=== PATIENT | female | born 1990 | race Caucasian/White ===

== ENCOUNTER 2017-12-18 12:55 | Emergency (ER) | payer SELFPAY ==
--- NOTE | 2017-12-18 13:44 | EDPHYS ---
Physician Documentation [facility] Name: Blanca Lion Age: 27 yrs Sex: Female : 1990 Arrival Date: 12/18/2017 Time: 13:00 Bed 5 Private MD: ED Physician Jason Rosario HPI: 12/18 13:45 This 27 yrs old Female presents to ER via Ambulatory with complaints of Ear jr8 Pain. 13:45 The patient presents with pain, moderate. The complaints affect the right ear and left jr8 ear. Onset: The symptoms/episode began/occurred gradually, 2 day(s) ago. Modifying factors: The symptoms are alleviated by nothing, the symptoms are aggravated by touching. Associated signs and symptoms: Pertinent positives: rhinorrhea, lightheadedness. Severity of symptoms: At their worst the symptoms were moderate in the emergency department the symptoms are unchanged. The patient has not experienced similar symptoms in the past. The patient has not recently seen a physician. cold x 1 week. Now having bilateral ear pain . 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 - Social history:: Smoking status: Patient uses tobacco products, cigars. - Ebola Screening: : Patient negative for fever greater than or equal to 101.5 degrees Fahrenheit, and additional compatible Ebola Virus Disease symptoms Patient denies exposure to infectious person Patient denies travel to an Ebola-affected area in the 21 days before illness onset No symptoms or risks identified at this time. ROS: 13:45 Eyes: Negative for injury, pain, redness, and discharge, Neck: Negative for injury, jr8 pain, and swelling, Cardiovascular: Negative for chest pain, palpitations, and edema, Respiratory: Negative for shortness of breath, cough, wheezing, and pleuritic chest pain, Abdomen/GI: Negative for abdominal pain, nausea, vomiting, diarrhea, and constipation, Back: Negative for injury and pain, MS/Extremity: Negative for injury and deformity, Skin: Negative for injury, rash, and discoloration, Neuro: Negative for headache, weakness, numbness, tingling, and seizure. 13:45 ENT: Positive for ear pain, rhinorrhea, sinus congestion, Negative for drainage from ear(s), sore throat, difficulty swallowing, difficulty handling secretions, hoarseness. Exam: 13:45 Head/Face: Normocephalic, atraumatic. Eyes: Pupils equal round and reactive to light, jr8 extra-ocular motions intact. Lids and lashes normal. Conjunctiva and sclera are non-icteric and not injected. Cornea within normal limits. Periorbital areas with no swelling, redness, or edema. Neck: Trachea midline, no thyromegaly or masses palpated, and no cervical lymphadenopathy. Supple, full range of motion without nuchal rigidity, or vertebral point tenderness. No Meningismus. Cardiovascular: Regular rate and rhythm with a normal S1 and S2. No gallops, murmurs, or rubs. Normal PMI, no JVD. No pulse deficits. Respiratory: Lungs have equal breath sounds bilaterally, clear to auscultation and percussion. No rales, rhonchi or wheezes noted. No increased work of breathing, no retractions or nasal flaring. Abdomen/GI: Soft, non-tender, with normal bowel sounds. No distension or tympany. No guarding or rebound. No evidence of tenderness throughout. Back: No spinal tenderness. No costovertebral tenderness. Full range of motion. Skin: Warm, dry with normal turgor. Normal color with no rashes, no lesions, and no evidence of cellulitis. MS/ Extremity: Pulses equal, no cyanosis. Neurovascular intact. Full, normal range of motion. Neuro: Awake and alert, GCS 15, oriented to person, place, time, and situation. Cranial nerves II-XII grossly intact. Motor strength 5/5 in all extremities. Sensory grossly intact. Cerebellar exam normal. Normal gait. 13:45 ENT: External ear(s): are unremarkable, Ear canal(s): are normal, TM's: bulging, bilaterally, erythema, that is moderate, bilaterally, Bullous myringitis noted left TM, Nose: is normal, Mouth: Lips: moist, Oral mucosa: pink and intact, moist, Gums: pink, Tongue: is moist, Posterior pharynx: Airway: patent, Tonsils: are normal in appearance, Uvula: midline, swelling, is not appreciated, erythema, is not appreciated. Vital Signs: 13:01 BP 125 / 91; Pulse 89; Resp 16; Temp 98.2; Pulse Ox 100% on R/A; Weight 81.65 kg; aj Height 5 ft. 4 in. (162.56 cm); 14:00 BP 120 / 88; Pulse 88; Resp 17; Pulse Ox 100% on R/A; Pain 4/10; hb 13:01 Body Mass Index 30.90 (81.65 kg, 162.56 cm) aj MDM: 13:35 Patient medically screened. [facility] 13:42 Data reviewed: vital signs, nurses notes, and as a result, I will discharge patient. jr8 Data interpreted: Pulse oximetry: on room air is 100 %. Interpretation: normal. Counseling: I had a detailed discussion with the patient and/or guardian regarding: the historical points, exam findings, and any diagnostic results supporting the discharge/admit diagnosis, the need for outpatient follow up, a family practitioner, to return to the emergency department if symptoms worsen or persist or if there are any questions or concerns that arise at home. Administered Medications: No medications were administered Disposition: 16:20 Co-signature as Attending Physician, Jason Rosario MD. rn Disposition: 12/18/17 13:43 Discharged to Home. Impression: Bullous myringitis, left ear, Acute suppurative otitis media - Billateral ears. - Condition is Stable. - Discharge Instructions: Otitis Media, Adult. - Prescriptions for Augmentin 875- 125 mg Oral Tablet - take 1 tablet by ORAL route every 12 hours for 10 days; 20 tablet. Ibuprofen 800 mg Oral Tablet - take 1 tablet by ORAL route every 12 hours As needed take with food; 20 tablet. - Medication Reconciliation Form, Thank You Letter, Antibiotic Education, Prescription Opioid Use, Work release form form. - Follow up: Private Physician; When: 1 week; Reason: Recheck today's complaints, Continuance of care, Re-evaluation by your physician. - Problem is new. - Symptoms have improved. Signatures: Blanca Sequeira RN Jason Stuart MD MD rn Roszak, Josh, PA PA jr8 Alayna Bagley, RN RN hb Corrections: (The following items were deleted from the chart) 13:43 13:43 12/18/2017 13:43 Discharged to Home. Impression: Bullous myringitis, left ear; jr8 Acute suppurative otitis media. Condition is Stable. Forms are Medication Reconciliation Form, Thank You Letter, Antibiotic Education, Prescription Opioid Use. Follow up: Private Physician; When: 1 week; Reason: Recheck today's complaints, Continuance of care, Re-evaluation by your physician. Problem is new. Symptoms have improved. jr8 14:31 13:43 12/18/2017 13:43 Discharged to Home. Impression: Bullous myringitis, left ear; hb Acute suppurative otitis media - Billateral ears. Condition is Stable. Forms are Medication Reconciliation Form, Thank You Letter, Antibiotic Education, Prescription Opioid Use. Follow up: Private Physician; When: 1 week; Reason: Recheck today's complaints, Continuance of care, Re-evaluation by your physician. Problem is new. Symptoms have improved. jr8
--- NOTE | 2017-12-18 13:44 | ER ---
Nurse's Notes [facility] Name: Blanca Lion Age: 27 yrs Sex: Female : 1990 Arrival Date: 12/18/2017 Time: 13:00 Bed 5 Private MD: Diagnosis: Bullous myringitis, left ear;Acute suppurative otitis media-Billateral ears Presentation: 12/18 13:00 Presenting complaint: Patient states: Bilateral ear pain and dizziness for 1 week. aj Transition of care: patient was not received from another setting of care. Onset of symptoms was December 13, 2017. Risk Assessment: Do you want to hurt yourself or someone else? Patient reports no desire to harm self or others. Care prior to arrival: None. 13:00 Method Of Arrival: Ambulatory aj 13:00 Acuity: TIANA 5 aj Triage Assessment: 13:01 General: Appears in no apparent distress. comfortable, Behavior is calm, cooperative, aj appropriate for age. Pain: Complains of pain in right ear and left ear. EENT: Reports pain in left ear and right ear. Neuro: Level of Consciousness is awake, alert, obeys commands, Oriented to person, place, time, situation, Appropriate for age. Respiratory: Airway is patent Respiratory effort is even, unlabored, Respiratory pattern is regular, symmetrical. Derm: Skin is intact, is healthy with good turgor, Skin is pink, warm \T\ dry. normal. 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 - Social history:: Smoking status: Patient uses tobacco products, cigars. - Ebola Screening: : Patient negative for fever greater than or equal to 101.5 degrees Fahrenheit, and additional compatible Ebola Virus Disease symptoms Patient denies exposure to infectious person Patient denies travel to an Ebola-affected area in the 21 days before illness onset No symptoms or risks identified at this time. Screenin:15 Abuse screen: Denies threats or abuse. Denies injuries from another. Nutritional hb screening: No deficits noted. Tuberculosis screening: No symptoms or risk factors identified. Fall Risk None identified. Assessment: 14:00 General: Appears in no apparent distress. Behavior is calm, cooperative. Pain: Pain hb currently is 4 out of 10 on a pain scale. Neuro: Level of Consciousness is awake, alert, obeys commands, Oriented to person, place, time, situation. Cardiovascular: Capillary refill < 3 seconds Patient's skin is warm and dry. Respiratory: Airway is patent Trachea midline Respiratory effort is even, unlabored, Respiratory pattern is regular, symmetrical. EENT: Reports pain since bilateral ears. Vital Signs: 13:01 BP 125 / 91; Pulse 89; Resp 16; Temp 98.2; Pulse Ox 100% on R/A; Weight 81.65 kg; aj Height 5 ft. 4 in. (162.56 cm); 14:00 BP 120 / 88; Pulse 88; Resp 17; Pulse Ox 100% on R/A; Pain 4/10; hb 13:01 Body Mass Index 30.90 (81.65 kg, 162.56 cm) aj ED Course: 13:00 Patient arrived in ED. aj 13:00 Triage completed. aj 13:01 Arm band placed on left wrist. Patient placed in waiting room, Patient notified of wait aj time. 13:35 Amaury Miranda PA is PHCP. [facility] 13:35 Jason Rosario MD is Attending Physician. jr 14:00 Patient has correct armband on for positive identification. Bed in low position. Call hb light in reach. Side rails up X 1. 14:06 Alayna Bagley, NOVA is Primary Nurse. hb 14:15 No provider procedures requiring assistance completed. Patient did not have IV access hb during this emergency room visit. Administered Medications: No medications were administered Outcome: 13:43 Discharge ordered by . jr 14:15 Discharged to home ambulatory. hb 14:15 Condition: stable 14:15 Discharge instructions given to patient, Instructed on discharge instructions, follow up and referral plans. medication usage, Demonstrated understanding of instructions, follow-up care, medications, Prescriptions given X 2. 14:31 Patient left the ED. hb Signatures: Blanca Sequeira RN RN Amaury Raymundo PA PA jrAlayna Castellanos RN RN hb
== END 2017-12-18 14:31 | disposition home or self-care (01) ==
LOC: ER 12:55
DX: H73.012 Bullous myringitis, left ear (principal); H66.91 Otitis media, unspecified, right ear; F17.290 Nicotine dependence, other tobacco product, uncomplicated
CPT/HCPCS: 99282

== ENCOUNTER 2018-03-22 05:36 | Emergency (ER) | payer SELFPAY ==
[2018-03-22] MEDS ORDERED: ACETAMINOPHEN 325 MG TABLET ONE (06:15)
[2018-03-22 06:50] LABS: Absolute Lymphocytes (CBC) 2.2 K/uL (0.7-4.9); Absolute Monocytes 0.3 K/uL (0.1-1.3); Basophils % 0.6 % (0-1.3); Eosinophils % 1.5 % (0-4.4); Hematocrit 40.4 % (36.0-45.0); MCH 31.4 pg (27.0-35.0); MCV 90.2 fL (80-100); MPV 9.4 fL (7.6-11.3); Monocytes % 4.8 % (3.3-12.3); RBC Red Blood Cell Count 4.48 M/uL (3.86-4.86)
[2018-03-22 07:17] LABS: BUN Blood Urea Nitrogen 8 mg/dL (7-18); Bicarbonate 28 mmol/L (21-32); Glucose Level 102 mg/dL (74-106); Potassium 3.4 mmol/L (3.5-5.1); Sodium Level 142 mmol/L (136-145); Troponin (Emerg Dept Use Only) < 0.02 ng/mL (0.0-0.045)
--- NOTE | 2018-03-22 07:36 | ER ---
Nurse's Notes [facility] Name: Blanca Lion Age: 27 yrs Sex: Female : 1990 Arrival Date: 03/22/2018 Time: 05:37 Bed 16 Private MD: Diagnosis: Chest pain, unspecified Presentation: 03/22 05:50 Presenting complaint: Patient states: I have been having seizures for 10 yrs and after tl2 the seizure this morning I have been having tightness in my chest and a headache. I vomited [address] to the ER. Transition of care: patient was not received from another setting of care. Onset of symptoms was March 22, 2018. Risk Assessment: Do you want to hurt yourself or someone else? Patient reports no desire to harm self or others. Initial Sepsis Screen: Does the patient meet any 2 criteria? No. Patient's initial sepsis screen is negative. Does the patient have a suspected source of infection? No. Patient's initial sepsis screen is negative. Care prior to arrival: None. 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 - Social history:: Smoking status: Patient uses tobacco products, denies chronic smoking, but will smoke occasionally, Patient/guardian denies using alcohol. - Ebola Screening: : Patient negative for fever greater than or equal to 101.5 degrees Fahrenheit, and additional compatible Ebola Virus Disease symptoms Patient denies exposure to infectious person Patient denies travel to an Ebola-affected area in the 21 days before illness onset. Screenin:36 Abuse screen: Denies threats or abuse. Nutritional screening: No deficits noted. tl2 Tuberculosis screening: No symptoms or risk factors identified. Fall Risk None identified. Assessment: 06:33 General: Appears in no apparent distress. uncomfortable, Behavior is calm, cooperative, tl2 appropriate for age. Pain: Complains of pain in chest Pain does not radiate. Pain began 2 hours ago. Neuro: Level of Consciousness is awake, alert, obeys commands, Oriented to person, place, time, situation. Cardiovascular: Reports chest pain, vomiting, Rhythm is sinus bradycardia. Respiratory: Airway is patent Respiratory effort is even, unlabored, Respiratory pattern is regular, symmetrical. GI: Reports vomiting. Derm: Skin is pink, warm \T\ dry. 07:00 General: Appears uncomfortable, Behavior is calm, cooperative. Pain: Complains of pain rb1 in chest Pain does not radiate. Pain currently is 6 out of 10 on a pain scale. Neuro: Level of Consciousness is awake, alert, obeys commands, Oriented to person, place, time, situation. Cardiovascular: Capillary refill < 3 seconds is brisk in bilateral fingers. Respiratory: Airway is patent Respiratory effort is even, unlabored, Respiratory pattern is regular, symmetrical. Derm: Skin is dry, Skin is normal, Skin temperature is warm. 08:01 Reassessment: Patient appears in no apparent distress at this time. Patient and/or em family updated on plan of care and expected duration. Pain level reassessed. Patient is alert, oriented x 3, equal unlabored respirations, skin warm/dry/pink. Patient states feeling better. Vital Signs: 05:52 BP 123 / 94; Pulse 87; Resp 16; Temp 98.4; Pulse Ox 98% on R/A; Weight 81.65 kg; Height tl2 5 ft. 4 in. (162.56 cm); Pain 8/10; 06:33 BP 108 / 88; Pulse 60; Resp 18; Pulse Ox 100% on R/A; tl2 07:30 BP 113 / 85; Pulse 66; Resp 17; Pulse Ox 100% on R/A; rb1 05:52 Body Mass Index 30.90 (81.65 kg, 162.56 cm) tl2 ED Course: 05:37 Patient arrived in ED. es 05:51 Ana Spivey FNP-C is [facility]. kb 05:51 Raimundo Hinojosa MD is Attending Physician. kb 05:52 Triage completed. tl2 05:54 Arm band placed on right wrist. tl2 06:11 Patient moved to radiology via wheelchair. kp1 06:11 X-ray completed. Patient tolerated procedure well. kp1 06:23 Chest Pa And Lat (2 Views) XRAY In Process Unspecified. EDMS 06:24 Mi Stahl, RN is Primary Nurse. tl2 06:36 Patient has correct armband on for positive identification. Bed in low position. Call tl2 light in reach. Side rails up X 1. Pulse ox on. NIBP on. 06:36 Inserted saline lock: 22 gauge in right antecubital area, using aseptic technique. tl2 Blood collected. Patient maintains SpO2 saturation greater than 95% on room air. 07:57 January Waters, RN is Primary Nurse. rb1 08:00 No provider procedures requiring assistance completed. IV discontinued, intact, em bleeding controlled, No redness/swelling at site. Pressure dressing applied. Administered Medications: 06:24 Drug: Tylenol 1000 mg Route: PO; tl2 07:02 Follow up: Response: No adverse reaction tl2 08:00 Drug: TORadol 30 mg Route: IVP; Site: right antecubital; iw 08:01 Follow up: Response: Medication administered at discharge. em Outcome: 07:35 Discharge ordered by . kb 08:00 Discharged to home ambulatory. em 08:00 Condition: good 08:00 Discharge instructions given to patient, Instructed on discharge instructions, follow up and referral plans. Demonstrated understanding of instructions, follow-up care. 08:01 Patient left the ED. em Signatures: Dispatcher [employer] EDIN Ana Spivey, STAFF MECHANICAL ENGINEER-C STAFF MECHANICAL ENGINEER-CkMichelle Prather Edgar, ROUGH RICE GRADER ROUGH RICE GRADER em Debbi Guerrero RN RN iw January Waters, NOVA RN rb1 Mi Stahl RN RN tl2 Gena Miller [facility]
--- NOTE | 2018-03-22 07:36 | EDPHYS ---
Physician Documentation [facility] Name: Blanca Lion Age: 27 yrs Sex: Female : 1990 Arrival Date: 03/22/2018 Time: 05:37 Bed 16 Private MD: ED Physician Raimundo Hinojosa HPI: 03/22 06:24 This 27 yrs old Female presents to ER via Ambulatory with complaints of Chest kb Tightness, Headache. 06:24 The patient or guardian reports chest pain that is located primarily in the chest kb diffusely. The pain does not radiate. Associated signs and symptoms: Pertinent positives: shortness of breath, Pertinent negatives: abdominal pain, cough, diaphoresis, dizziness, headache, lower extremity pain, lower extremity swelling, lightheadedness, nausea, near syncope, palpitations, recent travel, syncope, vomiting. The chest pain is described as aching. Duration: The patient or guardian reports a single episode. Modifying factors: The symptoms are alleviated by nothing. the symptoms are aggravated by nothing. Severity of pain: At its worst the pain was mild moderate in the emergency department the pain is unchanged. The patient has not experienced similar symptoms in the past. The patient has not recently seen a physician. 06:25 Pt reports chest pain that started yesterday at 2200. States she has had it throughout kb the night. Also reports she had a seizure last night. States she has had seizures for 10 years and this one felt the same. Now she has a headache and reports it is the same pain that she normally has after a seizure. 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 - Social history:: Smoking status: Patient uses tobacco products, denies chronic smoking, but will smoke occasionally, Patient/guardian denies using alcohol. - Ebola Screening: : Patient negative for fever greater than or equal to 101.5 degrees Fahrenheit, and additional compatible Ebola Virus Disease symptoms Patient denies exposure to infectious person Patient denies travel to an Ebola-affected area in the 21 days before illness onset. ROS: 06:23 Constitutional: Negative for fever, chills, and weight loss, ENT: Negative for injury, kb pain, and discharge, Neck: Negative for injury, pain, and swelling, Abdomen/GI: Negative for abdominal pain, nausea, vomiting, diarrhea, and constipation, Back: Negative for injury and pain, : Negative for injury, bleeding, discharge, and swelling, MS/Extremity: Negative for injury and deformity, Skin: Negative for injury, rash, and discoloration. 06:23 Cardiovascular: Positive for chest pain, Negative for edema, orthopnea, palpitations, paroxysmal nocturnal dyspnea. 06:23 Neuro: Positive for headache, seizure activity, Negative for altered mental status, dizziness, gait disturbance, hearing loss, loss of consciousness, numbness, speech changes, syncope, near syncope, tingling, tinnitus, tremor, visual changes, weakness. 06:25 Respiratory: Positive for shortness of breath, Negative for cough, dyspnea on exertion, kb hemoptysis, orthopnea, pleurisy, sputum production, wheezing. Exam: 06:23 Constitutional: This is a well developed, well nourished patient who is awake, alert, kb and in no acute distress. Head/Face: Normocephalic, atraumatic. ENT: Nares patent. No nasal discharge, no septal abnormalities noted. Tympanic membranes are normal and external auditory canals are clear. Oropharynx with no redness, swelling, or masses, exudates, or evidence of obstruction, uvula midline. Mucous membranes moist. Neck: Trachea midline, no thyromegaly or masses palpated, and no cervical lymphadenopathy. Supple, full range of motion without nuchal rigidity, or vertebral point tenderness. No Meningismus. Chest/axilla: Normal chest wall appearance and motion. Nontender with no deformity. No lesions are appreciated. Cardiovascular: Regular rate and rhythm with a normal S1 and S2. No gallops, murmurs, or rubs. Normal PMI, no JVD. No pulse deficits. Abdomen/GI: Soft, non-tender, with normal bowel sounds. No distension or tympany. No guarding or rebound. No evidence of tenderness throughout. Back: No spinal tenderness. No costovertebral tenderness. Full range of motion. Skin: Warm, dry with normal turgor. Normal color with no rashes, no lesions, and no evidence of cellulitis. MS/ Extremity: Pulses equal, no cyanosis. Neurovascular intact. Full, normal range of motion. Neuro: Awake and alert, GCS 15, oriented to person, place, time, and situation. Cranial nerves II-XII grossly intact. Motor strength 5/5 in all extremities. Sensory grossly intact. Cerebellar exam normal. Normal gait. 06:23 Respiratory: the patient does not display signs of respiratory distress, Respirations: normal, Breath sounds: wheezing: expiratory that is mild, is heard in the left posterior lower lobe. Vital Signs: 05:52 BP 123 / 94; Pulse 87; Resp 16; Temp 98.4; Pulse Ox 98% on R/A; Weight 81.65 kg; Height tl2 5 ft. 4 in. (162.56 cm); Pain 8/10; 06:33 BP 108 / 88; Pulse 60; Resp 18; Pulse Ox 100% on R/A; tl2 07:30 BP 113 / 85; Pulse 66; Resp 17; Pulse Ox 100% on R/A; rb1 05:52 Body Mass Index 30.90 (81.65 kg, 162.56 cm) tl2 MDM: 05:51 Patient medically screened. kb 06:23 Data reviewed: vital signs, nurses notes. Data interpreted: Pulse oximetry: on room air kb is 98 %. Interpretation: normal. 07:34 Counseling: I had a detailed discussion with the patient and/or guardian regarding: the kb historical points, exam findings, and any diagnostic results supporting the discharge/admit diagnosis, lab results, radiology results, the need for outpatient follow up, a family practitioner, to return to the emergency department if symptoms worsen or persist or if there are any questions or concerns that arise at home. 03/22 06:00 Order name: Troponin (emerg Dept Use Only); Complete Time: 07:30 kb 03/22 06:00 Order name: D-Dimer; Complete Time: 07:30 kb 03/22 06:00 Order name: Chest Pa And Lat (2 Views) XRAY kb 03/22 06:00 Order name: CBC with Diff; Complete Time: 06:58 kb 03/22 06:00 Order name: Basic Metabolic Panel; Complete Time: 07:30 kb 03/22 06:00 Order name: EKG; Complete Time: 06:00 kb 03/22 06:00 Order name: EKG - Nurse/Tech; Complete Time: 06:24 kb Administered Medications: 06:24 Drug: Tylenol 1000 mg Route: PO; tl2 07:02 Follow up: Response: No adverse reaction tl2 08:00 Drug: TORadol 30 mg Route: IVP; Site: right antecubital; iw 08:01 Follow up: Response: Medication administered at discharge. em Disposition: 03/22/18 07:35 Discharged to Home. Impression: Chest pain, unspecified. - Condition is Stable. - Discharge Instructions: Nonspecific Chest Pain, [id number]. - Medication Reconciliation Form, Thank You Letter, Antibiotic Education, Prescription Opioid Use, Work release form form. - Follow up: Emergency Department; When: As needed; Reason: Worsening of condition. Follow up: Private Physician; When: 2 - 3 days; Reason: Recheck today's complaints, Continuance of care, Re-evaluation by your physician. Addendum: 03/23/2018 08:20 Co-signature as Attending Physician, Raimundo Hinojosa MD I agree with the assessment and w a plan of care. Signatures: Dispatcher [employer] EDAna Thakur, ALL SOURCE INTELLIGENCE TECHNICIAN-C ALL SOURCE INTELLIGENCE TECHNICIAN-Ckb Kannan Sandoval, OUTSOLE SPLICER OUTSOLE SPLICER em Debbi Guerrero RN RN Mi Stahl RN RN tl2 Raimundo Hinojosa MD MD ma Corrections: (The following items were deleted from the chart) 03/22 06:25 06:23 Constitutional: Negative for fever, chills, and weight loss, ENT: Negative for kb injury, pain, and discharge, Neck: Negative for injury, pain, and swelling, Respiratory: Negative for shortness of breath, cough, wheezing, and pleuritic chest pain, Abdomen/GI: Negative for abdominal pain, nausea, vomiting, diarrhea, and constipation, Back: Negative for injury and pain, : Negative for injury, bleeding, discharge, and swelling, MS/Extremity: Negative for injury and deformity, Skin: Negative for injury, rash, and discoloration, kb 08:01 07:35 03/22/2018 07:35 Discharged to Home. Impression: Chest pain, unspecified. em Condition is Stable. Forms are Medication Reconciliation Form, Thank You Letter, Antibiotic Education, Prescription Opioid Use. Follow up: Emergency Department; When: As needed; Reason: Worsening of condition. Follow up: Private Physician; When: 2 - 3 days; Reason: Recheck today's complaints, Continuance of care, Re-evaluation by your physician. kb
[2018-03-22] MEDS ORDERED: KETOROLAC 30 MG/ML INJ ONE (07:58)
--- NOTE | 2018-03-22 10:19 | RAD REPORT ---
EXAM DESCRIPTION: RAD - Chest Pa And Lat (2 Views) - 03/22/2018 9:37 am CLINICAL HISTORY: CHEST PAIN Chest pain. COMPARISON: Chest Pa And Lat (2 Views) dated 11/11/2015; CHEST SINGLE VIEW dated 10/19/2009; CHEST PA A ND LAT 2 VIEW dated 10/21/2008 FINDINGS: The lungs are clear. The heart is normal in size. No displaced fractures. IMPRESSION: No acute or concerning finding suspected.
--- NOTE | 2018-03-23 08:55 | EKG ---
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
== END 2018-03-22 08:01 | disposition home or self-care (01) ==
LOC: ER 05:36
DX: R07.9 Chest pain, unspecified (principal); F17.200 Nicotine dependence, unspecified, uncomplicated; R56.9 Unspecified convulsions
CPT/HCPCS: 36415; 71046; 80048; 84484; 85025; 85379; 93005; 96374; 99285

== ENCOUNTER 2018-03-28 10:10 | Emergency (ER) | payer SELFPAY ==
[2018-03-28] MEDS ORDERED: FLUORESCEIN SODIUM 0.6 MG/WRAP ONE (11:14)
[2018-03-28] MEDS ORDERED: TETRACAINE HCL 0.5% 2ML OPTH ONE (11:14)
--- NOTE | 2018-03-28 12:09 | ER ---
Nurse's Notes [facility] Name: Blanca Lion Age: 27 yrs Sex: Female : 1990 Arrival Date: 03/28/2018 Time: 10:16 Bed 9 Private MD: None, None Diagnosis: Other acute conjunctivitis Presentation: 03/28 10:48 Presenting complaint: Patient states: Redness and itching to left eye since this AM. aj Transition of care: patient was not received from another setting of care. Onset of symptoms was March 28, 2018. Risk Assessment: Do you want to hurt yourself or someone else? Patient reports no desire to harm self or others. Initial Sepsis Screen: Does the patient meet any 2 criteria? No. Patient's initial sepsis screen is negative. Does the patient have a suspected source of infection? No. Patient's initial sepsis screen is negative. Care prior to arrival: None. 10:48 Method Of Arrival: Ambulatory aj 10:48 Acuity: TIANA 5 aj Triage Assessment: 10:48 General: Appears in no apparent distress. comfortable, Behavior is calm, cooperative, aj appropriate for age. Pain: Complains of pain in left eye. EENT: Sclera/Cornea are reddened in outer aspect of conjuctiva of left eye, iris of left eye and inner aspect of conjunctiva of left eye. Neuro: Level of Consciousness is awake, alert, obeys commands, Oriented to person, place, time, situation, Appropriate for age. Respiratory: Airway is patent Respiratory effort is even, unlabored, Respiratory pattern is regular, symmetrical. Derm: Skin is intact, is healthy with good turgor, Skin is pink, warm \T\ dry. normal. 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 - Social history:: Smoking status: Patient/guardian denies using tobacco. - Ebola Screening: : Patient negative for fever greater than or equal to 101.5 degrees Fahrenheit, and additional compatible Ebola Virus Disease symptoms Patient denies exposure to infectious person Patient denies travel to an Ebola-affected area in the 21 days before illness onset No symptoms or risks identified at this time. Screenin:09 Abuse screen: Denies threats or abuse. Denies injuries from another. Nutritional iw screening: No deficits noted. Tuberculosis screening: No symptoms or risk factors identified. Fall Risk None identified. Assessment: 12:09 Reassessment: Patient appears in no apparent distress at this time. Patient and/or iw family updated on plan of care and expected duration. Pain level reassessed. Patient is alert, oriented x 3, equal unlabored respirations, skin warm/dry/pink. Vital Signs: 10:48 BP 124 / 91; Pulse 77; Resp 16; Temp 97.8; Pulse Ox 99% on R/A; Weight 81.65 kg; Height aj 5 ft. 4 in. (162.56 cm); 10:48 Body Mass Index 30.90 (81.65 kg, 162.56 cm) aj Visual Acuity: 11:45 Left Eye Visual acuity 20/30, Pupil size 4 mm, ; Right Eye Visual acuity 20/20, Pupil iw size 4 mm, ; Without Lenses; ED Course: 10:16 Patient arrived in ED. mr 10:17 None, None is Private Physician. mr 10:48 Triage completed. aj 10:48 Arm band placed on left wrist. Patient placed in waiting room, Patient notified of wait aj time. 10:52 Debbi Guerrero, RN is Primary Nurse. iw 10:53 Jai Rai PA is PHCP. jmm 10:53 Mando Okeefe MD is Attending Physician. jmm 11:30 Assist provider with eye exam of left eye. using fluorescein stain, Performed by Jai iw Fredi GARNETT Patient tolerated well. 11:56 Omar Feliz MD is Referral Physician. jmm 12:09 Patient did not have IV access during this emergency room visit. iw 12:10 Patient has correct armband on for positive identification. iw Administered Medications: 12:12 Not Given (Physician Discretion): Tetracaine Drops 0.5 % 1 drops Ophthalmic once iw Outcome: 11:56 Discharge ordered by . jmm 12:09 Discharged to home ambulatory. iw 12:09 Condition: good 12:09 Discharge instructions given to patient, Instructed on discharge instructions, follow up and referral plans. medication usage, Demonstrated understanding of instructions, follow-up care, medications, Prescriptions given X 1. 12:12 Patient left the ED. iw Signatures: Blanca Sequeira, Jai Garcia RN, PA PA jmm Rivera, Maria mr Debbi Guerrero RN RN iw
--- NOTE | 2018-03-28 12:09 | EDPHYS ---
Physician Documentation [facility] Name: Blanca Lion Age: 27 yrs Sex: Female : 1990 Arrival Date: 03/28/2018 Time: 10:16 Bed 9 Private MD: None, None ED Physician Mando Okeefe HPI: 03/28 11:06 This 27 yrs old Female presents to ER via Ambulatory with complaints of jmm Redness of Eye, Eye Swelling. 11:06 The patient is experiencing redness, tearing. Onset: The symptoms/episode jmm began/occurred this morning. Duration: the symptoms are continuous. Aggravated by opening eye, Alleviated by nothing. Associated signs and symptoms: Pertinent negatives: fever, runny nose. This is a 27 year old famale that presents to the ED with left eye itching, drainage. . 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 - Social history:: Smoking status: Patient/guardian denies using tobacco. - Ebola Screening: : Patient negative for fever greater than or equal to 101.5 degrees Fahrenheit, and additional compatible Ebola Virus Disease symptoms Patient denies exposure to infectious person Patient denies travel to an Ebola-affected area in the 21 days before illness onset No symptoms or risks identified at this time. ROS: 11:06 Constitutional: Negative for fever, chills, and weight loss. jmm 11:06 ENT: Negative for injury, pain, and discharge, Neck: Negative for injury, pain, and swelling, Cardiovascular: Negative for chest pain, palpitations, and edema, Respiratory: Negative for shortness of breath, cough, wheezing, and pleuritic chest pain, Skin: Negative for injury, rash, and discoloration, Neuro: Negative for headache, weakness, numbness, tingling, and seizure. 11:06 Eyes: Positive for discharge, itching. 11:06 All other systems are negative. Exam: 11:06 Constitutional: This is a well developed, well nourished patient who is awake, alert, jmm and in no acute distress. Head/Face: atraumatic. Chest/axilla: Normal chest wall appearance and motion. Cardiovascular: Regular rate and rhythm. No edema appreciated Respiratory: Normal respirations, no respiratory distress appreciated 11:06 Eyes: Extraocular movements: intact throughout, Conjunctiva: injected, in the left eye, [facility] Corneas: are normal, a fluorescein strip employed to appreciate the findings. 11:06 Neck: ROM/movement: is normal. 11:06 Respiratory: the patient does not display signs of respiratory distress, Respirations: jmm normal, Breath sounds: are clear throughout. 11:06 Abdomen/GI: Inspection: abdomen appears normal. 11:06 Musculoskeletal/extremity: ROM: intact in all extremities. 11:06 Skin: Appearance: Color: normal in color. 11:06 Neuro: Orientation: is normal, Mentation: is normal, Memory: is normal. 11:06 Psych: Behavior/mood is pleasant, anxious. Vital Signs: 10:48 BP 124 / 91; Pulse 77; Resp 16; Temp 97.8; Pulse Ox 99% on R/A; Weight 81.65 kg; Height aj 5 ft. 4 in. (162.56 cm); 10:48 Body Mass Index 30.90 (81.65 kg, 162.56 cm) Visual Acuity: 11:45 Left Eye Visual acuity 20/30, Pupil size 4 mm, ; Right Eye Visual acuity 20/20, Pupil iw size 4 mm, ; Without Lenses; MDM: 11:06 Patient medically screened. [facility] 11:55 Data reviewed: vital signs, nurses notes. Counseling: I had a detailed discussion with [facility] the patient and/or guardian regarding: the historical points, exam findings, and any diagnostic results supporting the discharge/admit diagnosis, the need for outpatient follow up, to return to the emergency department if symptoms worsen or persist or if there are any questions or concerns that arise at home. 03/28 11:06 Order name: Visual Acuity; Complete Time: 11:46 [facility] 03/28 11:06 Order name: Eye Tray; Complete Time: 11:11 [facility] 03/28 11:06 Order name: Fluoresene Opth strip; Complete Time: 11:11 [facility] Administered Medications: 12:12 Not Given (Physician Discretion): Tetracaine Drops 0.5 % 1 drops Ophthalmic once iw Disposition: 13:42 Co-signature as Attending Physician, Mando Okeefe MD I agree with the assessment and [facility] hospital plan of care. Disposition: 03/28/18 11:56 Discharged to Home. Impression: Other acute conjunctivitis. - Condition is Stable. - Discharge Instructions: Bacterial Conjunctivitis. - Prescriptions for Erythromycin 5 mg/gram (0.5 %) Ophthalmic Ointment - apply 1 ribbon by OPHTHALMIC route every 8 hours; 1 tube. - Medication Reconciliation Form, Thank You Letter, Antibiotic Education, Prescription Opioid Use, Work release form form. - Follow up: Omar Feliz MD; When: 2 - 3 days; Reason: Recheck today's complaints, Continuance of care, Re-evaluation by your physician. Signatures: Blanca Sequeira, RN Mando Kingsley MD MD cha Mickail, Joel, PA PA jm Debbi Guerrero RN RN iw Corrections: (The following items were deleted from the chart) 12:12 11:56 03/28/2018 11:56 Discharged to Home. Impression: Other acute conjunctivitis. iw Condition is Stable. Forms are Medication Reconciliation Form, Thank You Letter, Antibiotic Education, Prescription Opioid Use. Follow up: Omar Feliz; When: 2 - 3 days; Reason: Recheck today's complaints, Continuance of care, Re-evaluation by your physician. [facility] 17:10 11:06 Constitutional: This is a well developed, well nourished patient who is awake, jmm alert, and in no acute distress. Head/Face: atraumatic. Eyes: EOMI, no conjunctival erythema appreciated Chest/axilla: Normal chest wall appearance and motion. Cardiovascular: Regular rate and rhythm. No edema appreciated Respiratory: Normal respirations, no respiratory distress appreciated [facility]
== END 2018-03-28 12:12 | disposition home or self-care (01) ==
LOC: ER 10:10
DX: H10.32 Unspecified acute conjunctivitis, left eye (principal)
CPT/HCPCS: 99283

== ENCOUNTER 2018-04-28 14:26 | Emergency (ER) | payer SELFPAY ==
--- NOTE | 2018-04-28 15:37 | ER ---
Nurse's Notes 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 i RAN WATER OVER IT FOR LIKE 15 MIN. Transition of care: patient was not received from another setting of care. Onset: The symptoms/episode began/occurred gradually. Anaphylaxis evaluation, the patient reports or I have noted the following symptoms which indicate a significant risk of anaphylaxis: no signs or symptoms of anaphylaxis were noted. Onset of symptoms was April 28, 2018 at 11:30. Risk Assessment: Do you want to hurt yourself or someone else? Patient reports no desire to harm self or others. Initial Sepsis Screen: Does the patient meet any 2 criteria? No. Patient's initial sepsis screen is negative. Does the patient have a suspected source of infection? No. Patient's initial sepsis screen is negative. Care prior to arrival: None. 14:39 Method Of Arrival: Ambulatory 14:39 Acuity: TIANA 5 Triage Assessment: 14:41 General: Appears in no apparent distress. comfortable, Behavior is calm, cooperative, ch appropriate for age. Pain: Complains of pain in left ear, left cheek and left jaw Pain currently is 9 out of 10 on a pain scale. Respiratory: No deficits noted. 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 - Social history:: Smoking status: Patient/guardian denies using tobacco. - Ebola Screening: : Patient negative for fever greater than or equal to 101.5 degrees Fahrenheit, and additional compatible Ebola Virus Disease symptoms Patient denies exposure to infectious person Patient denies travel to an Ebola-affected area in the 21 days before illness onset No symptoms or risks identified at this time. Screenin:54 Abuse screen: Denies threats or abuse. Denies injuries from another. Nutritional rv screening: No deficits noted. Tuberculosis screening: No symptoms or risk factors identified. Fall Risk None identified. Assessment: 14:53 General: Appears in no apparent distress. comfortable, Behavior is calm, cooperative. rv Pain: Complains of pain in face Quality of pain is described as burning. Neuro: Level of Consciousness is awake, alert, obeys commands, Oriented to person, place, time, situation. Cardiovascular: Capillary refill < 3 seconds. Respiratory: Airway is patent Respiratory effort is even, Breath sounds are clear bilaterally. GI: No signs and/or symptoms were reported involving the gastrointestinal system. : No signs and/or symptoms were reported regarding the genitourinary system. EENT: No signs and/or symptoms were reported regarding the EENT system. Derm: Rash noted that is itchy, on face. Vital Signs: 14:41 BP 113 / 80; Pulse 88; Resp 16; Temp 98.5; Pulse Ox 99% on R/A; Weight 83.46 kg; Height 5 ft. 4 in. (162.56 cm); Pain 9/10; 14:55 BP 123 / 71; rv 14:41 Body Mass Index 31.58 (83.46 kg, 162.56 cm) ED Course: 14:27 Patient arrived in ED. as 14:40 Triage completed. 14:41 Arm band placed on left wrist. Patient placed in an exam room, on a stretcher. 14:45 [facility] 14:45 Mando Okeefe MD is Attending Physician. [facility] 14:54 Patient has correct armband on for positive identification. Bed in low position. Call rv light in reach. Side rails up X 1. NIBP on. 15:47 No provider procedures requiring assistance completed. Patient did not have IV access rv during this emergency room visit. Administered Medications: No medications were administered Outcome: 15:36 Discharge ordered by . jr8 15:47 Discharged to home ambulatory. rv 15:47 Condition: good 15:47 Discharge instructions given to patient, Instructed on discharge instructions, follow up and referral plans. medication usage, Demonstrated understanding of instructions, follow-up care, medications, Prescriptions given X 1. 15:47 Patient left the ED. 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
--- NOTE | 2018-04-28 15:37 | EDPHYS ---
Physician Documentation [facility] Name: Blanca Lion Age: 27 yrs Sex: Female : 1990 Arrival Date: 04/28/2018 Time: 14:27 Bed 10 Private MD: ED Physician Mando Okeefe HPI: 04/28 15:04 This 27 yrs old Female presents to ER via Ambulatory with complaints of jr8 Allergic Reaction. 15:04 The patient presents with rash. Onset: The symptoms/episode began/occurred acutely, jr8 today. Associated signs and symptoms: The patient has no apparent associated signs or symptoms. Possible causes: [place] away . Severity of symptoms: At their worst the symptoms were mild in the emergency department the symptoms are unchanged. The patient has not experienced similar symptoms in the past. The patient has not recently seen a physician. Stated that she had just finished spraying a well with bois forte away and while scrubbing it started to feel burning to her face . 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 - Social history:: Smoking status: Patient/guardian denies using tobacco. - Ebola Screening: : Patient negative for fever greater than or equal to 101.5 degrees Fahrenheit, and additional compatible Ebola Virus Disease symptoms Patient denies exposure to infectious person Patient denies travel to an Ebola-affected area in the 21 days before illness onset No symptoms or risks identified at this time. ROS: 15:04 Eyes: Negative for injury, pain, redness, and discharge, ENT: Negative for injury, jr8 pain, and discharge, Neck: Negative for injury, pain, and swelling, Cardiovascular: Negative for chest pain, palpitations, and edema, Respiratory: Negative for shortness of breath, cough, wheezing, and pleuritic chest pain, Abdomen/GI: Negative for abdominal pain, nausea, vomiting, diarrhea, and constipation, Back: Negative for injury and pain, MS/Extremity: Negative for injury and deformity, Neuro: Negative for headache, weakness, numbness, tingling, and seizure. 15:04 Skin: Positive for rash. Exam: 15:04 Head/Face: Normocephalic, atraumatic. Eyes: Pupils equal round and reactive to light, jr8 extra-ocular motions intact. Lids and lashes normal. Conjunctiva and sclera are non-icteric and not injected. Cornea within normal limits. Periorbital areas with no swelling, redness, or edema. ENT: Nares patent. No nasal discharge, no septal abnormalities noted. Tympanic membranes are normal and external auditory canals are clear. Oropharynx with no redness, swelling, or masses, exudates, or evidence of obstruction, uvula midline. Mucous membranes moist. Neck: Trachea midline, no thyromegaly or masses palpated, and no cervical lymphadenopathy. Supple, full range of motion without nuchal rigidity, or vertebral point tenderness. No Meningismus. Cardiovascular: Regular rate and rhythm with a normal S1 and S2. No gallops, murmurs, or rubs. Normal PMI, no JVD. No pulse deficits. Respiratory: Lungs have equal breath sounds bilaterally, clear to auscultation and percussion. No rales, rhonchi or wheezes noted. No increased work of breathing, no retractions or nasal flaring. Abdomen/GI: Soft, non-tender, with normal bowel sounds. No distension or tympany. No guarding or rebound. No evidence of tenderness throughout. Back: No spinal tenderness. No costovertebral tenderness. Full range of motion. MS/ Extremity: Pulses equal, no cyanosis. Neurovascular intact. Full, normal range of motion. Neuro: Awake and alert, GCS 15, oriented to person, place, time, and situation. Cranial nerves II-XII grossly intact. Motor strength 5/5 in all extremities. Sensory grossly intact. Cerebellar exam normal. Normal gait. 15:04 Skin: Patient has red splotching to both cheeks. No other rash identified on face . Vital Signs: 14:41 BP 113 / 80; Pulse 88; Resp 16; Temp 98.5; Pulse Ox 99% on R/A; Weight 83.46 kg; Height ch 5 ft. 4 in. (162.56 cm); Pain 9/10; 14:55 BP 123 / 71; rv 14:41 Body Mass Index 31.58 (83.46 kg, 162.56 cm) ch MDM: 14:45 Patient medically screened. jr8 15:35 Data reviewed: vital signs, nurses notes, and as a result, I will discharge patient. jr8 Data interpreted: Pulse oximetry: on room air is 99 %. Interpretation: normal. Counseling: I had a detailed discussion with the patient and/or guardian regarding: the historical points, exam findings, and any diagnostic results supporting the discharge/admit diagnosis, the need for outpatient follow up, a family practitioner, to return to the emergency department if symptoms worsen or persist or if there are any questions or concerns that arise at home. ED course: markedly improved after cleaning face here . Administered Medications: No medications were administered Disposition: 04/28/18 15:36 Discharged to Home. Impression: Irritant contact dermatitis due to detergents. - Condition is Stable. - Discharge Instructions: Contact Dermatitis. - Prescriptions for Prednisone 20 mg Oral Tablet - take 1 tablet by ORAL route once daily for 5 days; 5 tablet. - Medication Reconciliation Form, Thank You Letter, Antibiotic Education, Prescription Opioid Use, Work release form form. - Follow up: Private Physician; When: 2 - 3 days; Reason: If symptoms return, Recheck today's complaints, Continuance of care, Re-evaluation by your physician. - Problem is new. - Symptoms have improved. Addendum: 04/29/2018 17:45 Co-signature as Attending Physician, Mando Okeefe MD I agree with the assessment and c powell plan of care. Signatures: Stephanie Weber, RN Mando Mena ch, MD MD cha Roszak, Josh, PA PA jr8 Tello Young, RN RN rv Corrections: (The following items were deleted from the chart) 04/28 15:47 15:36 04/28/2018 15:36 Discharged to Home. Impression: Irritant contact dermatitis due rv to detergents. Condition is Stable. Forms are Medication Reconciliation Form, Thank You Letter, Antibiotic Education, Prescription Opioid Use. Follow up: Private Physician; When: 2 - 3 days; Reason: If symptoms return, Recheck today's complaints, Continuance of care, Re-evaluation by your physician. Problem is new. Symptoms have improved. jr8
== END 2018-04-28 15:47 | disposition home or self-care (01) ==
LOC: ER 14:26
DX: L24.5 Irritant contact dermatitis due to other chemical products (principal)
CPT/HCPCS: 99282

== ENCOUNTER 2019-05-05 18:25 | Emergency (ER) | payer SELFPAY ==
[2019-05-05] MEDS ORDERED: IBUPROFEN 400 MG TAB ONE (19:32)
[2019-05-05] MEDS ORDERED: HYDROCODONE/APAP 5/325 MG TAB ONE (19:32)
--- NOTE | 2019-05-05 20:32 | RAD REPORT ---
EXAM DESCRIPTION: RAD - Foot Left 3 View - 05/05/2019 7:46 pm CLINICAL HISTORY: Left Foot pain FINDINGS: No fracture or dislocation is seen. Large calcaneal spurs present
--- NOTE | 2019-05-05 20:50 | EDPHYS ---
Physician Documentation [facility] Name: Blanca Lion Age: 28 yrs Sex: Female : 1990 Arrival Date: 05/05/2019 Time: 18:27 Bed 24 Private MD: ED Physician Raimundo Hinojosa HPI: 05/05 19:59 This 28 yrs old Female presents to ER via Wheelchair with complaints of Foot snw Pain. 19:59 The patient presents with pain, that is acute. The complaints affect the left heel. snw Onset: The symptoms/episode began/occurred suddenly. 20:00 Context: began running and felt pain from heel to arch of foot, worsening pain as the snw day has gone on. Associated signs and symptoms: The patient has no apparent associated signs or symptoms. Severity of symptoms: At their worst the symptoms were moderate. The patient has not experienced similar symptoms in the past. The patient has not recently seen a physician. 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 - Social history:: Smoking status: Patient uses tobacco products, cigars. - Ebola Screening: : No symptoms or risks identified at this time. ROS: 19:59 Constitutional: Negative for fever, chills, and weight loss, Eyes: Negative for injury, snw pain, redness, and discharge, ENT: Negative for injury, pain, and discharge, Neck: Negative for injury, pain, and swelling, Cardiovascular: Negative for chest pain, palpitations, and edema, Respiratory: Negative for shortness of breath, cough, wheezing, and pleuritic chest pain, Abdomen/GI: Negative for abdominal pain, nausea, vomiting, diarrhea, and constipation, Back: Negative for injury and pain, : Negative for injury, bleeding, discharge, and swelling, Skin: Negative for injury, rash, and discoloration, Neuro: Negative for headache, weakness, numbness, tingling, and seizure, Psych: Negative for depression, anxiety, suicide ideation, homicidal ideation, and hallucinations. 19:59 MS/extremity: Positive for injury or acute deformity, pain, of the heel of left foot and arch of left foot. Exam: 19:58 Constitutional: This is a well developed, well nourished patient who is awake, alert, snw and in no acute distress. Head/Face: Normocephalic, atraumatic. Eyes: Pupils equal round and reactive to light, extra-ocular motions intact. Lids and lashes normal. Conjunctiva and sclera are non-icteric and not injected. Cornea within normal limits. Periorbital areas with no swelling, redness, or edema. ENT: Nares patent. No nasal discharge, no septal abnormalities noted. Tympanic membranes are normal and external auditory canals are clear. Oropharynx with no redness, swelling, or masses, exudates, or evidence of obstruction, uvula midline. Mucous membranes moist. Neck: Trachea midline, no thyromegaly or masses palpated, and no cervical lymphadenopathy. Supple, full range of motion without nuchal rigidity, or vertebral point tenderness. No Meningismus. Chest/axilla: Normal chest wall appearance and motion. Nontender with no deformity. No lesions are appreciated. Cardiovascular: Regular rate and rhythm with a normal S1 and S2. No gallops, murmurs, or rubs. Normal PMI, no JVD. No pulse deficits. Respiratory: Lungs have equal breath sounds bilaterally, clear to auscultation and percussion. No rales, rhonchi or wheezes noted. No increased work of breathing, no retractions or nasal flaring. Abdomen/GI: Soft, non-tender, with normal bowel sounds. No distension or tympany. No guarding or rebound. No evidence of tenderness throughout. Back: No spinal tenderness. No costovertebral tenderness. Full range of motion. Skin: Warm, dry with normal turgor. Normal color with no rashes, no lesions, and no evidence of cellulitis. Neuro: Awake and alert, GCS 15, oriented to person, place, time, and situation. Cranial nerves II-XII grossly intact. Motor strength 5/5 in all extremities. Sensory grossly intact. Cerebellar exam normal. Normal gait. Psych: Awake, alert, with orientation to person, place and time. Behavior, mood, and affect are within normal limits. 19:58 Musculoskeletal/extremity: Extremities: grossly normal except: noted in the heel of left foot and arch of left foot: pain, ROM: no acute changes, Circulation is intact in all extremities. Sensation intact. Joints: All joints appear normal with full range of motion. Tendon exam: specific tendon testing normal through active and passive range of motion Vital Signs: 18:31 BP 125 / 84; Pulse 74; Resp 16; Temp 98.7; Pulse Ox 100% on R/A; Weight 81.65 kg; la1 Height 5 ft. 5 in. (165.10 cm); 18:31 Body Mass Index 29.95 (81.65 kg, 165.10 cm) la1 MDM: 19:14 Patient medically screened. snw 20:50 Data reviewed: vital signs, nurses notes. Data interpreted: Pulse oximetry: on room air snw is 100 %. Interpretation: normal. Counseling: I had a detailed discussion with the patient and/or guardian regarding: the historical points, exam findings, and any diagnostic results supporting the discharge/admit diagnosis, radiology results, the need for outpatient follow up, to return to the emergency department if symptoms worsen or persist or if there are any questions or concerns that arise at home. Special discussion: Based on the history and exam findings, there is no indication for further emergent testing or inpatient evaluation. I discussed with the patient/guardian the need to see the corrections specialist for further evaluation of the symptoms. I discussed with the patient/guardian the need to see the primary care provider for further evaluation of the symptoms. 05/05 19:28 Order name: Foot Left 3 View XRAY; Complete Time: 20:34 snw Administered Medications: 19:40 Drug: [place] 5 mg-325 mg 1 tabs Route: PO; la1 19:40 Drug: Motrin 400 mg Route: PO; la1 Disposition: 05/05/19 20:49 Discharged to Home. Impression: Heel spur. - Condition is Stable. - Discharge Instructions: Heel Spur. - Prescriptions for Mobic 7.5 mg Oral Tablet - take 1 tablet by ORAL route once daily take with food; 20 tablet. - Medication Reconciliation Form, Thank You Letter, Antibiotic Education, Prescription Opioid Use, Work release form form. - Follow up: Emergency Department; When: As needed; Reason: Worsening of condition. Follow up: Private Physician; When: 2 - 3 days; Reason: Recheck today's complaints, Continuance of care, Re-evaluation by your physician. Signatures: Dispatcher [employer] EDJackie Garcia FNP-C FNP-Csnw Iron Chen, RN RN la1 Corrections: (The following items were deleted from the chart) 21:00 20:49 05/05/2019 20:49 Discharged to Home. Impression: Heel spur. Condition is Stable. la1 Forms are Medication Reconciliation Form, Thank You Letter, Antibiotic Education, Prescription Opioid Use. Follow up: Emergency Department; When: As needed; Reason: Worsening of condition. Follow up: Private Physician; When: 2 - 3 days; Reason: Recheck today's complaints, Continuance of care, Re-evaluation by your physician. snw
--- NOTE | 2019-05-05 20:50 | ER ---
Nurse's Notes [facility] Name: Blanca Lion Age: 28 yrs Sex: Female : 1990 Arrival Date: 05/05/2019 Time: 18:27 Bed 24 Private MD: Diagnosis: Heel spur Presentation: 05/05 18:30 Presenting complaint: Patient states: I recently started exercising and today while I la1 was running I felt like something pulled from my arch to my heel in my left foot and now I can barely walk and the pain is awful. Transition of care: patient was not received from another setting of care. Onset of symptoms was May 05, 2019. Risk Assessment: Do you want to hurt yourself or someone else? Patient reports no desire to harm self or others. Initial Sepsis Screen: Does the patient meet any 2 criteria? No. Patient's initial sepsis screen is negative. Does the patient have a suspected source of infection? No. Patient's initial sepsis screen is negative. Care prior to arrival: None. 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 - Social history:: Smoking status: Patient uses tobacco products, cigars. - Ebola Screening: : No symptoms or risks identified at this time. Screenin:37 Abuse screen: Denies threats or abuse. Denies injuries from another. Nutritional ca1 screening: No deficits noted. Tuberculosis screening: No symptoms or risk factors identified. Fall Risk None identified. Assessment: 18:37 General: Appears in no apparent distress. comfortable, Behavior is calm, cooperative, ca1 appropriate for age. Pain: Complains of pain in arch of left foot and heel of left foot Pain currently is 8 out of 10 on a pain scale. Pain began 1 hour ago. Pain: Quality of pain is described as stabbing. Neuro: Level of Consciousness is awake, alert, obeys commands, Oriented to person, place, time, situation, Appropriate for age. Derm: Skin is intact, is healthy with good turgor, Skin is pink, warm \T\ dry. Musculoskeletal: Circulation, motion, and sensation intact. Capillary refill < 3 seconds, Range of motion: limited in left ankle. Vital Signs: 18:31 BP 125 / 84; Pulse 74; Resp 16; Temp 98.7; Pulse Ox 100% on R/A; Weight 81.65 kg; la1 Height 5 ft. 5 in. (165.10 cm); 18:31 Body Mass Index 29.95 (81.65 kg, 165.10 cm) la1 ED Course: 18:27 Patient arrived in ED. as 18:30 Iron Chen, RN is Primary Nurse. la1 18:30 Triage completed. la1 18:31 Arm band placed on left wrist. la1 18:37 Patient has correct armband on for positive identification. Bed in low position. Call ca1 light in reach. Side rails up X 1. Pulse ox on. NIBP on. Warm blanket given. 18:37 No provider procedures requiring assistance completed. Patient did not have IV access ca1 during this emergency room visit. 18:45 Jackie Cooney FNP-C is PHCP. snw 18:45 Raimundo Hinojosa MD is Attending Physician. snw 19:44 Foot Left 3 View XRAY In Process Unspecified. EDMS Administered Medications: 19:40 Drug: [place] 5 mg-325 mg 1 tabs Route: PO; la1 19:40 Drug: Motrin 400 mg Route: PO; la1 Outcome: 20:49 Discharge ordered by . snw 20:59 Discharged to home ambulatory. la1 20:59 Condition: stable 20:59 Discharge instructions given to patient, Instructed on discharge instructions, follow up and referral plans. Demonstrated understanding of instructions, follow-up care, medications, Prescriptions given X 1. 21:00 Patient left the ED. la1 Signatures: Dispatcher [employer] EDMS Jackie Cooney FNP-C PAID SEARCH MARKETING ANALYST-Arleen Cannon as Iron Chen RN RN la1 Darleen Orourke RN RN ca1
[2019-05-05 22:06] VITALS: BP 125/84; TEMP 98.7; O2SAT 100
== END 2019-05-05 21:00 | disposition home or self-care (01) ==
LOC: ER 18:25
DX: M77.32 Calcaneal spur, left foot (principal); Z72.0 Tobacco use
CPT/HCPCS: 99284